=== PATIENT | female | born 2000 | race Caucasian/White ===

== ENCOUNTER 2022-08-02 00:22 | Day surgery (SDC) | payer BC ==
[2022-08-02 01:12] VITALS: BMI 23.4
[2022-08-02 02:06] LABS: Bilirubin Neg (Negative); Blood, Urine Negative (Negative); CAUTI Indications for Culture Dysuria,urgency,freq; Clarity Clear (Clear); Glucose, Urine (Dipstick) 100 mg/dL (Negative); Ketone, Urine Negative (Negative); Leukocyte Negative (Negative); Nitrite Negative (Negative); Protein, Urine (Dipstick) 15 mg/dl (Neg-Trace); Specific Gravity, Urine 1.025 (1.005-1.030); Urobilinogen Normal mg/dL (Less than 2)
[2022-08-02 02:11] LABS: Urine Culture Reflex No No
[2022-08-02 02:28] LABS: Bacteria/HPF None Seen HPF (None Seen); RBC/HPF 0-3 HPF (0-3); Squamous Epithelial 0-3 HPF (0-3); WBC/HPF 0-3 HPF (0-3)
[2022-08-02 02:52] LABS: Fetal Membranes Rupture No Membranes Rupture (No Rupture)
[2022-08-02] MEDS ORDERED: hydrALAZINE 20 MG/ML VIAL SLOW IVP PRN (03:11)
== END 2022-08-02 04:35 | disposition home or self-care (01) ==
LOC: CSHLD/OP 00:22
PROVIDERS: ATTEND Obstetrics & Gynecology
DX: O47.03 False labor before 37 completed weeks of gestation, third trimester (principal); Z79.82 Long term (current) use of aspirin; Z79.899 Other long term (current) drug therapy; Z88.1 Allergy status to other antibiotic agents; Z88.8 Allergy status to other drugs, medicaments and biological substances; Z3A.34 34 weeks gestation of pregnancy
CPT/HCPCS: 81001; 84112; 99283

== ENCOUNTER 2022-08-31 17:28 | Day surgery (SDC) | payer BC ==
[2022-08-31 17:53] VITALS: BMI 23.6
[2022-08-31] MEDS ORDERED: hydrALAZINE 20 MG/ML VIAL SLOW IVP PRN (19:22)
[2022-08-31] MEDS ORDERED: Lactated Ringer's 1,000 ML IV SCH (19:30)
[2022-08-31 21:30] LABS: SARS-CoV-2 NAA Rapid Test Not Detected (NotDetected)
== END 2022-08-31 21:32 | disposition home or self-care (01) ==
LOC: CSHLD/OP 17:28
PROVIDERS: ATTEND Obstetrics & Gynecology
DX: O47.1 False labor at or after 37 completed weeks of gestation (principal); Z3A.38 38 weeks gestation of pregnancy; Z79.82 Long term (current) use of aspirin; Z79.899 Other long term (current) drug therapy; Z88.8 Allergy status to other drugs, medicaments and biological substances; Z91.040 Latex allergy status; Z20.822 Contact with and (suspected) exposure to COVID-19
CPT/HCPCS: 99283

== ENCOUNTER 2022-09-02 22:52 | Inpatient (IN) | payer BC ==
[2022-09-02] MEDS ORDERED: hydrALAZINE 20 MG/ML VIAL SLOW IVP PRN (23:58)
[2022-09-03] MEDS ORDERED: Lactated Ringer's 1,000 ML IV SCH ×2 (01:45→09:15)
[2022-09-03] MEDS ORDERED: Acetaminophen 500 MG TAB PO PRN (09:13)
[2022-09-03] MEDS ORDERED: hydrALAZINE 20 MG/ML VIAL SLOW IVP PRN (09:13)
[2022-09-03] MEDS ORDERED: Promethazine HCl 25 MG/ML VIAL IM PRN ×2 (09:13→17:38)
[2022-09-03] MEDS ORDERED: Misoprostol 200 MCG TAB PR PRN (09:13)
[2022-09-03] MEDS ORDERED: Methylergonovine 0.2 MG/ML VIAL IM PRN (09:13)
[2022-09-03] MEDS ORDERED: Ondansetron PF 4 MG/2 ML Vial IVP PRN ×2 (09:13→17:38)
[2022-09-03] MEDS ORDERED: Carboprost 250 MCG/ML AMP IM PRN (09:13)
[2022-09-03] MEDS ORDERED: Lidocaine 1% (PF) 30 ML VIAL SC PRN (09:13)
[2022-09-03] MEDS ORDERED: Tranexamic Acid 1,000 MG in Sodium Chloride 0.9% 250 ML 250 ML IVPB PRN (09:13)
[2022-09-03] MEDS ORDERED: Ibuprofen 800 MG TAB PO PRN (09:13)
[2022-09-03] MEDS ORDERED: Misoprostol 100 MCG TAB VAG SCH (09:15)
[2022-09-03] MEDS ORDERED: NS w/ Oxytocin 30 units 500 ML IV SCH (09:15)
[2022-09-03 11:26] LABS: Hemoglobin 12.4 g/dL (12.0-15.5); Mean Corpuscular Hemoglobin 30.5 pg (27.0-33.0); Mean Corpuscular Volume 92.6 fl (81.6-98.3); Mean Platelet Volume 10.8 fl (7.4-10.4); Platelet Count 233 10x3/uL (150-450); RBC Distribution Width 13.8 % (11.5-14.5); Red Blood Cell (RBC) Count 4.06 10x6/uL (3.90-5.03); White Blood Cell (WBC) Count 8.5 10x3/uL (3.5-10.5)
[2022-09-03 11:41] LABS: HBSAg Index 0.15 S/CO (0-0.99); Hep B Surf Ag Non-Reactive S/CO (NonReactive); Syphilis Antibody Nonreactive (Nonreactive); Syphilis Antibody Index 0.07 S/CO (<1.00 Non-Reactive)
[2022-09-03] MEDS ORDERED: Butorphanol Tartrate 1 MG/ML VIAL ONE (16:33)
[2022-09-03] MEDS ORDERED: Fentanyl 2 mcg/Bup 0.1% Cadd 100 ML ONE (16:51)
[2022-09-03] MEDS ORDERED: Naloxone HCl 0.4 mg/ml Vial IVP PRN ×2 (17:38)
[2022-09-03] MEDS ORDERED: diphenhydrAMINE 50 MG/ML VIAL IVP PRN (17:38)
[2022-09-03] MEDS ORDERED: ePHEDrine Sulfate 50 MG/10 ML VIAL SLOW IVP PRN (17:38)
[2022-09-03] MEDS ORDERED: Moisturizing Cream (Eucerin) 113 GM JAR TOP PRN (17:38)
[2022-09-03] MEDS ORDERED: Acetaminophen 325 MG TAB PO PRN (17:38)
[2022-09-03] MEDS ORDERED: Fentanyl 2 mcg/Bupivacaine 0.1% Cassette 100 ML EPIDURAL SCH (17:45)
[2022-09-03] MEDS ORDERED: Communication Order-Pharmacy FS SCH (17:45)
[2022-09-03] MEDS ORDERED: Lactated Ringer's 500 ML IV PRN (17:55)
[2022-09-04] MEDS ORDERED: Misoprostol 200 MCG TAB VAG PRN (00:04)
[2022-09-04] MEDS ORDERED: Benzocaine-Menthol 82.5 ML CAN TOP PRN (00:04)
[2022-09-04] MEDS ORDERED: Boostrix 0.5 ML (Tdap) VIAL (>/=7 yrs of age) IM ONE (00:04)
[2022-09-04] MEDS ORDERED: NS w/ Oxytocin 30 units 500 ML IV SCH (00:04)
[2022-09-04] MEDS ORDERED: Lanolin Ointment 7 GM TUBE TOP PRN (00:04)
[2022-09-04] MEDS ORDERED: Milk Of Magnesia 30 ML UDCUP PO PRN (00:04)
[2022-09-04] MEDS ORDERED: Bisacodyl 10 MG SUPP PR PRN (00:04)
[2022-09-04] MEDS ORDERED: hydrALAZINE 20 MG/ML VIAL SLOW IVP PRN (00:04)
[2022-09-04] MEDS ORDERED: Docusate 100 MG CAP PO SCH (00:15)
[2022-09-04] MEDS: Ibuprofen 800 MG TAB PO SCH ×4 (01:18→22:00)
[2022-09-04] MEDS: Docusate 100 MG CAP PO SCH ×2 (08:14→22:00)
[2022-09-04] MEDS: Acetaminophen 500 MG TAB PO PRN ×2 (08:14→15:36)
[2022-09-04] MEDS: Prenatal Vitamin 1 TAB PO SCH (08:14)
[2022-09-04] MEDS: Ferrous Sulfate 325 MG TAB PO SCH ×2 (08:15→13:21)
[2022-09-05] MEDS: Ibuprofen 800 MG TAB PO SCH (05:40)
[2022-09-05 07:54] VITALS: BP 122/79; TEMP 97.5
[2022-09-05] MEDS: Ferrous Sulfate 325 MG TAB PO SCH (08:48)
[2022-09-05] MEDS: Prenatal Vitamin 1 TAB PO SCH (08:49)
[2022-09-05] MEDS: Docusate 100 MG CAP PO SCH (08:49)
[2022-09-05] MEDS: Acetaminophen 500 MG TAB PO PRN (08:54)
== END 2022-09-05 12:35 | disposition home or self-care (01) | DRG 807 ==
LOC: CSHLD/OP 22:52 → CSHLD 09-03 13:42 → CSHPP 09-03 23:43
PROVIDERS: ADMIT Obstetrics & Gynecology; ATTEND Obstetrics & Gynecology
PROC: 10E0XZZ Delivery of Products of Conception, External Approach (ICD-10-PCS; principal; 2022-09-03)
PROC: 10907ZC Drainage of Amniotic Fluid, Therapeutic from Products of Conception, Via Natural or Artificial Opening (ICD-10-PCS; 2022-09-03)
PROC: 3E0P7VZ Introduction of Hormone into Female Reproductive, Via Natural or Artificial Opening (ICD-10-PCS; 2022-09-03)
PROC: 10H07YZ Insertion of Other Device into Products of Conception, Via Natural or Artificial Opening (ICD-10-PCS; 2022-09-03)
DX: O75.89 Other specified complications of labor and delivery (principal); Z37.0 Single live birth; O77.0 Labor and delivery complicated by meconium in amniotic fluid; M32.9 Systemic lupus erythematosus, unspecified; Z3A.39 39 weeks gestation of pregnancy; Z82.49 Family history of ischemic heart disease and other diseases of the circulatory system; Z79.82 Long term (current) use of aspirin; Z79.899 Other long term (current) drug therapy; Z88.1 Allergy status to other antibiotic agents; Z88.8 Allergy status to other drugs, medicaments and biological substances; Z91.040 Latex allergy status; O76 Abnormality in fetal heart rate and rhythm complicating labor and delivery; Z14.1 Cystic fibrosis carrier
CPT/HCPCS: 51702; 76819; 85027; 86780; 86850; 86900; 86901; 87340; 99283; 99285; J0595; J1200; J2405; J2590; J7120

== ENCOUNTER 2025-04-22 16:05 | Emergency (ER) | payer BC | END 2025-04-22 16:59 | disposition home or self-care (01) | LOC: CSHERS 16:05 | DX: S61.210A Laceration without foreign body of right index finger without damage to nail, initial encounter (principal); W26.0XXA Contact with knife, initial encounter | CPT/HCPCS: 12001; 99282 ==